=== PATIENT | male | born 1990 | race Caucasian/White ===

== ENCOUNTER 2024-06-10 03:11 | Emergency (ER) | payer SELFPAY ==
[~2024-06-10] VITALS: Ht 165.1 cm; Wt 69.0 kg
[2024-06-10 03:27] VITALS: BP 136/78; PULSE 110; RESP 18; TEMP 98.5; O2SAT 100
[2024-06-10] MEDS ORDERED: FAMOTIDINE 20MG/2ML VIAL IV STA (04:31)
[2024-06-10] MEDS ORDERED: SODIUM CHLORIDE 0.9% 1,000 ML IV ONE (04:45)
[2024-06-10 04:58] LABS: BASOPHILS % 0.7 % (0.0-2.0); EOSINOPHILS % 0.2 % (0.0-5.0); HEMOGLOBIN. 14.8 g/dL (14.0-18.0); LYMPHOCYTES % 11.8 % (20.0-50.0); MEAN CORPUSCULAR HEMOGLOBIN 30.7 pg (28.0-32.0); MEAN CORPUSCULAR HGB CONC 34.4 g/dL (31.0-37.0); MEAN CORPUSCULAR VOLUME 89.1 fL (80.0-94.0); MEAN PLATELET VOLUME 7.2 fl (7.4-10.4); NEUTROPHILS % 79.3 % (40.0-76.0); PLATELET 337 x1000/uL (130-400); RED BLOOD CELL COUNT 4.83 mill/uL (4.7-6.1); RED CELL DISTRIBUTION WIDTH 13.4 % (11.6-14.6); WHITE BLOOD COUNT 6.6 x1000/uL (4.5-11.0)
[2024-06-10 05:03] LABS: CHLORIDE 103 mEq/L (98-107); POTASSIUM 3.2 mEq/L (3.5-5.1); SODIUM 139 mEq/L (136-145)
[2024-06-10 05:04] LABS: CALCIUM 10.4 mg/dL (8.7-10.4); CARBON DIOXIDE 19 mEq/L (21-32)
[2024-06-10 05:07] LABS: PROTHROMBIN TIME 11.1 sec (9.6-11.0)
[2024-06-10 05:09] LABS: CREATININE 0.8 mg/dL (0.6-1.3); GLUCOSE 100 mg/dL (70-105); UREA NITROGEN BLOOD 6 mg/dL (9-23)
[2024-06-10] MEDS ORDERED: FAMOTIDINE 20MG/2ML VIAL IV NR (07:45)
== END 2024-06-10 08:07 | disposition left against medical advice (07) ==
LOC: ER 03:11
DX: R10.9 Unspecified abdominal pain (principal); F10.20 Alcohol dependence, uncomplicated
CPT/HCPCS: 80048; 83690; 85025; 85610; 36415; 99283; J7030; Z7610; J3490